=== PATIENT | female | born 1950 | race Caucasian/White ===

== ENCOUNTER → 2016-08-13 | Outpatient (CLI) | payer OTHER ==
[~2016-08-13] MED LIST: AMT10 PO; ASPEC325 PO; ATEN-173 PO; CITA10TA4 PO; CITA20TA4 PO; DIAZ-165 PO; FRRG PO; FSM70 PO; MULT-506 PO; OMG3 PO; RIBO100T2 PO; SUMA25TA12 PO; [UNRECOGNIZED DRUG - OTHER] PO
[2016-08-13 18:00] LABS: BLOOD UREA NITROGEN 19 mg/dl (7-18); BUN/CREATININE RATIO 19.1 (10-20); CARBON DIOXIDE 31 mmol/L (21-32); CHLORIDE 103 mmol/L (98-107); CREATININE 0.97 mg/dl (0.60-1.20); GLUCOSE 88 mg/dl (70-99); MAGNESIUM 2.3 mg/dl (1.8-2.4); POTASSIUM 4.3 mmol/L (3.5-5.1); SODIUM 140 mmol/L (136-145)
[2016-08-13 18:06] LABS: CALCIUM 9.9 mg/dl (8.5-10.1)
[2016-08-13 18:09] LABS: ALKALINE PHOSPHATASE 46 U/L (45-117); ALT/SGPT 17 U/L (12-78); AST/SGOT 24 U/L (15-37); PREALBUMIN 26.4 mg/dl (20-40)
--- NOTE | 2016-08-19 10:28 | CODING QUERY MEDICAL NECESSITY ---
CQSUPPORTING DIAGNOSIS NEEDED A supporting diagnosis is required for the test/procedure performed on this patient in order for us to be reimbursed by the patient's insurance. Please provide a supporting diagnosis for the following test/procedure listed below next to the test name along with your signature. *If there is no additional diagnosis for this patient that would support the following test/procedure please document that below next to the test/procedure. Test(s)/Procedure(s) that require a supporting diagnosis: DOS 08/13/16 VITAMIN D TEST Provider Signature: Date: Thank you Annel Garrett [facility] Information [facility] Once completed, please kindly fax back to [phone] For questions please call [phone]
== END | disposition home or self-care (01) ==
LOC: C.LABPVFM 11:06
PROVIDERS: ATTEND Family Medicine
DX: R25.2 Cramp and spasm (principal); R63.4 Abnormal weight loss; R53.81 Other malaise

== ENCOUNTER → 2017-01-14 | Outpatient (CLI) | payer OTHER ==
--- NOTE | 2017-01-14 15:47 | MAMMOGRAPHY REPORT ---
BILATERAL DIGITAL SCREENING MAMMOGRAM TOMOSYNTHESIS WITH CAD: 01/14/2017 CLINICAL HISTORY: Routine screening. Patient has no complaints. TECHNIQUE: Breast tomosynthesis in addition to standard 2D mammography was performed. Current study was also evaluated with a Computer Aided Detection (CAD) system. COMPARISON: Comparison is made to exams dated: 01/11/2016 mammogram, 01/08/2015 mammogram, 01/05/2014 m ammogram, 01/03/2013 mammogram, 12/19/2011 mammogram, and 07/11/2010 mammogram - [facility]ter. BREAST COMPOSITION: The tissue of both breasts is heterogeneously dense, which may obscure small mas ses. FINDINGS: No suspicious masses, calcifications, or areas of architectural distortion are noted in ei ther breast. There has been no significant interval change compared to prior exams. A biopsy marker clip is again noted in the right breast. Nodular 6 mm asymmetry in the left superior posterior breas t appears similar to prior exams including the 2012 and 2009 exams, and considered benign given long- term stability. IMPRESSION: ACR BI-RADS CATEGORY 2: BENIGN There is no mammographic evidence of malignancy. A 1 year screening mammogram is recommended. The pa tient will receive written notification of the results. Approximately 10% of breast cancers are not detected with mammography. A negative mammographic report should not delay biopsy if a clinically suggestive mass is present. Tammie Rai M.D. /:01/14/2017 14:42:53 Director Of Teaching And Learning: Marge MORENO(Padma)(Licha), [facility] letter sent: Normal 1/2 BI-RADS Code: ACR BI-RADS Category 2: Benign
== END | disposition home or self-care (01) ==
LOC: C.MAMM 07:52
PROVIDERS: ATTEND Family Medicine
DX: Z12.31 Encounter for screening mammogram for malignant neoplasm of breast (principal)

== ENCOUNTER → 2017-05-12 | Outpatient (CLI) | payer OTHER | END | disposition home or self-care (01) | LOC: C.MAMM 15:32 | PROVIDERS: ATTEND Nurse Practitioner Family | DX: M85.88 Other specified disorders of bone density and structure, other site (principal); M85.852 Other specified disorders of bone density and structure, left thigh; M85.851 Other specified disorders of bone density and structure, right thigh; Z78.0 Asymptomatic menopausal state ==

== ENCOUNTER → 2017-06-01 | Outpatient (CLI) | payer OTHER | END | disposition home or self-care (01) | LOC: C.LABPVFM 14:26 | PROVIDERS: ATTEND Nurse Practitioner Family | DX: M81.0 Age-related osteoporosis without current pathological fracture (principal) ==